=== PATIENT | male | born 1995 | race Caucasian/White ===

== ENCOUNTER 2016-10-03 10:56 | Emergency (ER) | payer OTHER ==
[~2016-10-03] VITALS: Ht 175.3 cm; Wt 88.5 kg
--- NOTE | 2016-10-03 11:55 | ED GENERAL ADULT ---
History of Present Illness General Chief Complaint: Dyspnea (COPD, CHF, Other) Stated Complaint: TROUBLE BREATHING X 2 WEEKS Source: patient Exam Limitations: no limitations Vital Signs & Intake/Output Vital Signs & Intake/Output Vital Signs Date Time Temp Pulse Resp B/P B/P Pulse O2 O2 Flow FiO2 Mean Ox Delivery Rate 10/03 1445 97.9 63 18 122/72 97 Room Air 10/03 1423 99 10/03 1149 98 Room Air 10/03 1107 98.5 73 20 136/79 99 Room Air Room Air Allergies Coded Allergies: NO KNOWN ALLERGIES (12/31/11) Triage Note: PT TO ED WITH C/O "TROUBLE BREATHING ON AND OFF FOR A COUPLE OF WEEKS, FEELS LIKE I CAN'T GET A FULL BREATH". O2 SAT 98% ON ROOM AIR, WHILE SPEAKING. Triage Nurses Notes Reviewed? yes HPI: 20-year-old male with a history of GERD and hiatal hernia presenting with shortness of breath 2-3 weeks. Reports that he will intermittently feel short of breath and feel like he cannot take a deep enough breath in, occurs both at rest and with exertion. Also endorses nonproductive cough and chest tightness. Denies fevers, chest pain, sputum, nausea, vomiting, diaphoresis, lightheadedness, dizziness. Denies leg swelling, recent surgeries, personal/ family history of blood clots, hormone use, but does endorse recent travel to [facility] 5 weeks ago. Of note patient is a former cigarette smoker with last use 2-3 weeks ago. (ROB VINES,PORTIA) Reconcile Medications Albuterol Sulfate (Proventil Hfa) 90 MCG HFA.AER.AD 2 PUF INH Q4 PRN shortness of breath (NATALEE RALPH,PRATIK) Past History Travel History Traveled to [facility] past 21 day No Medical History Any Pertinent Medical History? 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 No (ROB VINES,PORTIA) Review of Systems Review of Systems Constitutional: Reports: no symptoms. EENTM: Reports: no symptoms. Respiratory: Reports: cough, short of breath. Denies: hemoptysis, sputum production, stridor , wheezing. Cardiovascular: Reports: no symptoms. GI: Reports: no symptoms. Genitourinary: Reports: no symptoms. Musculoskeletal: Reports: no symptoms. Skin: Reports: no symptoms. Neurological/Psychological: Reports: no symptoms. Hematologic/Endocrine: Reports: no symptoms. Immunologic/Allergic: Reports: no symptoms. (ROB VINES,PORTIA) Physical Exam Physical Exam General Appearance: well developed/nourished, no apparent distress, alert, awake , comfortable Head: atraumatic Ears, Nose, Throat: normal ENT inspection Respiratory: normal breath sounds, chest non-tender, lungs clear Cardiovascular: regular rate/rhythm, normal peripheral pulses Extremities: normal inspection, no edema Neurologic/Psych: awake, alert, oriented x 3, normal gait, normal mood/affect Skin: intact, normal color, warm/dry Core Measures ACS in differential dx? No CVA/TIA Diagnosis: No Severe Sepsis Present: No Septic Shock Present: No (ROB VINES,PORTIA) Progress Differential Diagnoses I considered the following diagnoses in my evaluation of the patient: [ACS versus PE versus pneumonia versus bronchitis versus anxiety] Plan of Care: Orders Procedure Date/time Status D-DIMER 10/03 1224 Complete CBC WITHOUT DIFFERENTIAL 10/03 1224 Complete BASIC METABOLIC PANEL 10/03 1224 Complete EKG 10/03 1224 Active Laboratory Tests 10/03/16 1237: Anion Gap 12, Estimated GFR > 60, BUN/Creatinine Ratio 14.4, Glucose 84, Calcium 9.7, D-Dimer High Sensitivty < 200, CBC w Diff NO MAN DIFF REQ, RBC 5.49, MCV 89.0, MCH 30.0, RDW 12.6, MPV 9.3, Gran % 62.0, Lymphocytes % 28.4, Monocytes % 8.6, Eosinophils % 0.8, Basophils % 0.2, Absolute Granulocytes 7.4 H, Absolute Lymphocytes 3.4, Absolute Monocytes 1.0 H, Absolute Eosinophils 0.1, Absolute Basophils 0, PUBS MCHC 33.7 EKG shows NSR. Labs unremarkable, including neg d-dimer. Pt feels improvement in his SOB and chest tightness after duoneb. Suspect viral bronchitis, d/c with rx albuterol and PMD f/u. (ROB VINES,PORTIA) Initial ED EKG: none (PORTIA RIVAS PA-C) Departure Departure Disposition: HOME OR SELF CARE Condition: Stable Clinical Impression Primary Impression: Shortness of breath Referrals: PATIENT HAS NO PRIMARY CARE DR (PCP/Family) Additional Instructions: Use 2 puffs of albuterol every 4-6 hours as needed for shortness of breath or chest tightness. Follow-up with your primary care doctor for reevaluation in the next 2 days. Return to the ER for any normal worsening symptoms. Departure Forms: Customer Survey General Discharge Information (PORTIA RIVAS PA-C) Departure Prescriptions: Current Visit Scripts Albuterol Sulfate (Proventil Hfa) 2 PUF INH Q4 PRN shortness of breath #1 INHAL PA/HEALTH COUNSELOR Co-Sign Statement Statement: ED Attending supervision documentation- [] I saw and evaluated the patient. I have also reviewed all the pertinent lab results and diagnostic results. I agree with the findings and the plan of care as documented in the PA's/HEALTH COUNSELOR's documentation. [X] I have reviewed the ED Record and agree with the PA's/HEALTH COUNSELOR's documentation. [] Additions or exceptions (if any) to the PAs/HEALTH COUNSELOR's note and plan are summarized below: [] (NATALEE RALPH,PRATIK) Critical Care Note Critical Care Note Critical Care Time: non-applicable (PORTIA RIVAS PA-C)
[2016-10-03 12:46] LABS: ABSOLUTE BASOPHIL COUNT 0 /CUMM (0.0-0.2); ABSOLUTE EOSINOPHIL COUNT 0.1 /CUMM (0.0-0.7); ABSOLUTE GRANULOCYTE CT 7.4 /CUMM (1.4-6.5); ABSOLUTE LYMPH COUNT 3.4 /CUMM (1.2-3.4); BASOPHIL % 0.2 % (0.0-2.0); EOSINOPHIL % 0.8 % (0-5); HEMATOCRIT 48.9 % (42-52); MEAN CORPUSCULAR HGB CONC 33.7 G/DL (33.0-37.0); MEAN PLATELET VOLUME 9.3 FL (7.4-10.4); PLATELET COUNT 244 /CUMM (130-400); RBC DISTRIBUTION WIDTH 12.6 % (11.5-14.5); RED BLOOD CELL CT 5.49 /CUMM (4.70-6.10)
--- NOTE | 2016-10-03 13:13 | RADIOLOGY REPORT ---
EXAMINATION: XR CHEST CLINICAL INFORMATION: Shortness of breath COMPARISON: None TECHNIQUE: 2 views of the chest were obtained. FINDINGS: No significant abnormality is noted involving the heart, lungs, mediastinum, bony thorax or soft tissues. Pectus excavatum. IMPRESSION: No acute pulmonary process. Pectus excavatum.
[2016-10-03] MEDS ORDERED: PROVENTIL HFA6.7 GM INH (14:41)
[2016-10-03 14:45] VITALS: BP 122/72
== END 2016-10-03 14:46 ==
LOC: ERH 10:56
PROVIDERS: Physician Assistant
DX: R07.89 Other chest pain (principal); R06.02 Shortness of breath
CPT/HCPCS: 1263; 93005; 93010

== ENCOUNTER 2017-08-18 02:21 | Emergency (ER) | payer OTHER ==
[~2017-08-18] VITALS: Ht 172.7 cm; Wt 68.0 kg
[~2017-08-18 02:21] MED LIST: ANASPAZ0.125 M1 SL; PROVENTIL HFA6.7 GM INH; REGLAN10 M1 PO; ZOFRAN ODT4 M1 SL
--- NOTE | 2017-08-18 02:36 | ED GENERAL ADULT ---
History of Present Illness General Chief Complaint: General Adult Stated Complaint: PER MOM,"HAS A DIFFICULT TIME BREATHING" Source: patient, family, old records Exam Limitations: no limitations Vital Signs & Intake/Output Vital Signs & Intake/Output Vital Signs Date Time Temp Pulse Resp B/P B/P Pulse O2 O2 Flow FiO2 Mean Ox Delivery Rate 08/187 98.3 102 18 143/82 100 Room Air Allergies Coded Allergies: NO KNOWN ALLERGIES (12/31/11) Reconcile Medications Albuterol Sulfate (Proventil Hfa) 90 MCG HFA.AER.AD 2 PUF INH Q4 PRN shortness of breath Hyoscyamine Sulfate (Anaspaz) 0.125 MG TAB.RAPDIS 1 TAB SL Q4P PRN abdominal pain Metoclopramide HCl (Reglan) 10 MG TABLET 1 TAB PO 4 TIMES/DAY PRN gerd 30 minutes before meals and bedtime Ondansetron (Zofran Odt) 4 MG TAB.RAPDIS 1 TAB SL TID PRN nausea/vomiting Triage Note: PT FROM HOME C/O ANXIETY ATTACK. PTS MOTHER STATES THAT PT HAS A HUGE MEDICAL HX WITH ANXIETY, PT TOOK MEDICAL MARIJUANA OIL TONIGHT AND HAS NOT BEEN ABLE TO CALM DOWN. PT FEELING ANXIOUS IN THE ROOM. 100% O2 ON RA, 2LNC APPLIED FOR COMFORT. PT UNABLE TO TOLERATE ANYTHING PO AT THIS TIME. Triage Nurses Notes Reviewed? yes HPI: Patient presents with an anxiety attack. Patient states that he took medical marijuana and it has not helped. The patient states whenever he gets up and walks around he feels very anxious and like his heart is racing. He is having burning sensation in his epigastric area which is been constant for the past 4-5 days. Patient does have a history of GERD. Patient has vomited twice. His mother states that he has had intermittent vomiting since she was a child. Patient feels that he cannot sit still because he just feels so anxious. Patient denies any suicidal or homicidal ideations. Past History Travel History Traveled to [place] past 21 day No Medical History Any Pertinent Medical History? see below for history Neurological: NONE EENT: NONE Cardiovascular: NONE Respiratory: NONE Gastrointestinal: GERD, hiatal hernia Hepatic: NONE Renal: NONE Musculoskeletal: NONE Psychiatric: anxiety Endocrine: NONE Blood Disorders: NONE Cancer(s): NONE PROTECTION SPECIALIST/Reproductive: NONE Surgical History Surgical History: non-contributory Psychosocial History What is your primary language Latvian Tobacco Use: Never used ETOH Use: occasional use Illicit Drug Use: marijuana Family History Hx Contributory? No Review of Systems Review of Systems Constitutional: Reports: no symptoms. EENTM: Reports: no symptoms. Respiratory: Reports: no symptoms. Cardiovascular: Reports: no symptoms. GI: Reports: see HPI, abdominal pain, vomiting. Genitourinary: Reports: no symptoms. Musculoskeletal: Reports: no symptoms. Skin: Reports: no symptoms. Neurological/Psychological: Reports: see HPI, anxiety. Hematologic/Endocrine: Reports: no symptoms. Immunologic/Allergic: Reports: no symptoms. All Other Systems: Reviewed and Negative Physical Exam Physical Exam General Appearance: well developed/nourished, alert, awake, anxious, mild distress Head: atraumatic, normal appearance Eyes: Bilateral: PERRL, EOMI. Ears, Nose, Throat: normal pharynx, normal ENT inspection, hearing grossly normal, DRY MM Neck: normal inspection, supple, full range of motion Respiratory: normal breath sounds, chest non-tender, no respiratory distress, lungs clear Cardiovascular: regular rate/rhythm, normal peripheral pulses Gastrointestinal: normal bowel sounds, soft, non-tender, no organomegaly Back: normal inspection, normal range of motion Extremities: normal inspection, normal capillary refill, normal range of motion, no edema Neurologic/Psych: no motor/sensory deficits, awake, alert, oriented x 3, normal gait, normal mood/affect Skin: intact, normal color, warm/dry Lymphatic: no anterior cervical anya Core Measures ACS in differential dx? No CVA/TIA Diagnosis: No Sepsis Present: No Sepsis Focused Exam Completed? No Progress Differential Diagnoses I considered the following diagnoses in my evaluation of the patient: [Anxiety attack, pancreatitis, reflux, dehydration] Plan of Care: Orders Procedure Date/time Status LIPASE 08/18 234 Complete COMPREHENSIVE METABOLIC PANEL 08/18 234 Complete CBC WITHOUT DIFFERENTIAL 08/18 234 Complete AMYLASE 08/18 234 Complete Laboratory Tests 08/18/17 0257: Anion Gap 13, Estimated GFR > 60, BUN/Creatinine Ratio 18.9, Glucose 96, Calcium 9.7, Total Bilirubin 0.8, AST 23, ALT 34, Alkaline Phosphatase 61, Total Protein 7.1, Albumin 4.4, Globulin 2.7, Albumin/Globulin Ratio 1.6, Amylase 46, Lipase 170, CBC w Diff MAN DIFF ORDERED, RBC 5.01, MCV 89.4, MCH 30.6, MCHC 34.2, RDW 12.7, MPV 9.4, Gran % 52.0, Lymphocytes % 35.3, Monocytes % 11.0 H, Eosinophils % 1.2, Basophils % 0.5, Absolute Granulocytes 5.6, Segmented Neutrophils 48, Absolute Lymphocytes 3.8 H, Lymphocytes 42, Monocytes 9, Absolute Monocytes 1.2 H, Eosinophils 1, Absolute Eosinophils 0.1, Absolute Basophils 0, Platelet Estimate ADEQUATE, Poikilocytosis 1+ Initial ED EKG: none Comments: Patient is feeling much better and feels comfortable going home. Departure Departure Disposition: HOME OR SELF CARE Condition: Stable Clinical Impression Primary Impression: Anxiety Secondary Impressions: Nausea Referrals: Benton RALPH,Lopez Orozco (PCP/Family) Additional Instructions: TAKE VISTARIL NEEDED RETURN OF SYMPTOMS WORSEN OR FOR ANY CONCERNS Departure Forms: Customer Survey General Discharge Information Prescriptions: Current Visit Scripts Hydroxyzine Pamoate (Vistaril) 1 CAP PO Q6P PRN ANXIETY #30 CAP Critical Care Note Critical Care Note Critical Care Time: non-applicable
[2017-08-18 03:15] LABS: ABSOLUTE BASOPHIL COUNT 0 /CUMM (0.0-0.2); ABSOLUTE EOSINOPHIL COUNT 0.1 /CUMM (0.0-0.7); ABSOLUTE GRANULOCYTE CT 5.6 /CUMM (1.4-6.5); ABSOLUTE LYMPH COUNT 3.8 /CUMM (1.2-3.4); ABSOLUTE MONOCYTE COUNT 1.2 /CUMM (0.10-0.60); BASOPHIL % 0.5 % (0.0-2.0); EOSINOPHIL % 1.2 % (0-5); HEMATOCRIT 44.8 % (42-52); MEAN CORPUSCULAR HGB 30.6 PG (27.0-31.0); MEAN CORPUSCULAR HGB CONC 34.2 G/DL (33.0-37.0); MEAN CORPUSCULAR VOLUME 89.4 FL (80.0-94.0); MEAN PLATELET VOLUME 9.4 FL (7.4-10.4); PLATELET COUNT 246 /CUMM (130-400); RBC DISTRIBUTION WIDTH 12.7 % (11.5-14.5); RED BLOOD CELL CT 5.01 /CUMM (4.70-6.10); WHITE BLOOD CELL COUNT 10.7 /CUMM (4.8-10.8)
[2017-08-18] MEDS ORDERED: VISTARIL25 M1 PO (03:45)
[2017-08-18 03:51] VITALS: BP 135/64
== END 2017-08-18 03:55 ==
LOC: ERH 02:21
PROVIDERS: Emergency Medicine
DX: F41.9 Anxiety disorder, unspecified (principal); R11.0 Nausea
CPT/HCPCS: 96374; J2405